=== PATIENT | female | born 1945 | race Caucasian/White ===

== ENCOUNTER → 2016-08-23 | Outpatient (CLI) | payer OTHER ==
--- NOTE | 2016-08-23 13:14 | MA ---
Screening Digital Mammogram With iCAD Analysis Clinical Indications: Routine screening. Her paternal grandmother was diagnosed with breast cancer in her 70s. Technique: Standard cephalocaudal projections are obtained. Digital breast tomosynthesis was performe d in the MLO projection with reconstruction at 1.0 mm slice thickness and composite MLO views reconst ructed. This examination is processed by the iCAD computer aided detection system. Comparison: August 2015, July 2014, July 2013, July 2012, July 2011, July 2010, Thomas wilson2009, May 2008. Breast density: Type B; Scattered fibroglandular densities. Findings: CAD was reviewed. No masses, suspicious calcifications or secondary signs of malignancy are seen. There has been no significant change in the appearance of either breast. Impression: Negative mammogram. BI-RADS 1. Recommendation: Routine mammographic screening in one year. [facility] will send a result letter to the patient. Negative mammography should not preclude additional workup of a clinically suspicious finding. The patient's information is entered into a reminder system with a target due date for her next mammo gram.
== END ==
LOC: FIMAGING 09:56
DX: Z12.31 Encounter for screening mammogram for malignant neoplasm of breast (principal); Z80.3 Family history of malignant neoplasm of breast

== ENCOUNTER → 2016-11-18 | Outpatient (CLI) | payer OTHER | LOC: BMCIMAGING 08:31 | PROVIDERS: ATTEND Physician Assistant | DX: Z47.89 Encounter for other orthopedic aftercare (principal); Z96.651 Presence of right artificial knee joint ==

== ENCOUNTER → 2016-11-23 | Outpatient (CLI) | payer OTHER | LOC: BMCIMAGING 13:27 | PROVIDERS: ATTEND Physician Assistant | DX: M79.9 Soft tissue disorder, unspecified (principal); M25.561 Pain in right knee ==

== ENCOUNTER → 2017-02-24 | Outpatient (CLI) | payer OTHER | LOC: BMCIMAGING 09:49 | PROVIDERS: ATTEND Orthopaedic Surgery | DX: S42.252A Displaced fracture of greater tuberosity of left humerus, initial encounter for closed fracture (principal) ==

== ENCOUNTER 2017-03-01 05:40 | Day surgery (SDC) | payer OTHER ==
[2017-03-01] MEDS ORDERED: ceFAZolin 2 GM/DEXTROSE 100 ML IV ONE (05:59)
[2017-03-01] MEDS ORDERED: LIDOCAINE 1% 2 ML INJ ID PRN (06:27)
[2017-03-01] MEDS ORDERED: LR 1,000 ML IV ONE (06:27)
--- NOTE | 2017-03-01 06:47 | PDHPUP ---
History & Physical Update H&P update statement: This history and physical update is based on an assessment of the patient which was completed after admission or registration (within 24 hours), but prior to the surgery/procedure.
[2017-03-01] MEDS ORDERED: oxyCODONE IR 5 MG TAB PO PRN (06:49)
[2017-03-01] MEDS ORDERED: MIDAZOLAM 2 MG/2 ML VIAL IVP ONE (06:56)
--- NOTE | 2017-03-01 06:56 | PDANEPAE ---
ANE History of Present Illness L greater tuberosity ORIF ANE Past Medical History - Cardiovascular History Hx Hypertension: Yes Hx Arrhythmias: No Hx Chest Pain: No Hx Coronary Artery / Peripheral Vascular Disease: No Hx CHF / Valvular Disease: No Hx Palpitations: No Cardiovascular History Comment: PCP MONITORS BP MEDS - Pulmonary History Hx COPD: No Hx Asthma/Reactive Airway Disease: No Hx Recent Upper Respiratory Infection: No Hx Oxygen in Use at Home: No Hx Sleep Apnea: Yes Sleep Apnea Screening Result - Last Documented: Positive Pulmonary History Comment: DENICE POSITIVE USES CPAP AT [facility]- INSTRUCTED PT TO BRING TO HOSPITAL - Neurologic History Hx Cerebrovascular Accident: No Hx Seizures: No Hx Dementia: No - Endocrine History Hx Diabetes: Yes Endocrine History Comment: TYPE 2 - Renal History Hx Renal Disorders: No - Liver History Hx Hepatic Disorders: No - Neurological & Psychiatric Hx Hx Neurological and Psychiatric Disorders: No - Cancer History Hx Cancer: No Cancer History Comment: parents- cancer. mother-pancreatic,liver. father-lung ca. - Congenital Disorder History Hx Congenital Disorders: No - GI History Hx Gastrointestinal Disorders: No - Other Health History Other Health History: WEARS GLASSES. WEARS BILATERAL HEARING AIDES. RIGHT ARM BRUISED AND HAS GOOSE-EGG SIZE HEMATOMA FROM FALL - Chronic Pain History Chronic Pain: No - Surgical History Prior Surgeries: MASS REMOVED FROM KNEE BY DR BLACK 12/2016. LEFT PARTIAL KNEE WITH BANUELOS 09/21/13. l knee scope 2008. tubal ligation ANE Review of Systems Review of systems is: negative - Exercise capacity Exercise capacity: >=4 METS METS (RN): 4 METS ANE Patient History - Allergies Allergies/Adverse Reactions: tetracycline [Tetracycline] Allergy (Intermediate, Verified 02/28/17 16:23) Rash - Home Medications Home medications: home medication list seen and reviewed Home Medications: RX: Calcium Carbonate/Vitamin D3 [Calcium 600-Vit D3 200 Tablet] 09/03/13 [ Last Taken 02/23/17] RX: Fish Oil/Dha/Epa [Fish Oil 1,200 mg Fish Oil] 09/03/13 [Last Taken 02/23/17 ] RX: Multivitamins [Multivitamin (*)] 09/03/13 [Last Taken 02/23/17] RX: Valsartan/Hydrochlorothiazide [Diovan Hct 160-12.5 mg Tab] 09/03/13 [Last Taken 02/28/17] RX: metFORMIN HCL [Glucophage 500 mg (*)] 09/03/13 [Last Taken 02/28/17 09:00] Atorvastatin Calcium 02/28/17 [Last Taken 02/28/17] IBUPROFEN 02/28/17 [Last Taken 02/23/17] Jardiance 02/28/17 [Last Taken 02/28/17 09:00] MAGNESIUM 02/28/17 [Last Taken 02/27/17] Vitamin D3 02/28/17 [Last Taken 02/23/17] - NPO status NPO Status: no food or drink >8 hours NPO Since - Liquids (Date): 02/28/17 NPO Since - Liquids (Time): 22:00 NPO Since - Solids (Date): 02/28/17 NPO Since - Solids (Time): 19:30 - Anes Hx Anes Hx: no prior problems - Smoking Hx Smoking Status: Former smoker - Family Anes Hx Family Anes Hx: none Family Hx Anesthesia Complications: none ANE Labs/Vital Signs - Labs Result Diagrams: 03/01/17 06:40 - Vital Signs Blood Pressure: 147/66 Heart Rate: 67 Respiratory Rate: 16 O2 Sat (%): 94 Height: 160.02 cm Weight: 79.379 kg ANE Physical Exam - Airway Neck exam: FROM Mallampati Score: Class 2 Mouth exam: normal dental/mouth exam - Pulmonary Pulmonary: no respiratory distress - Cardiovascular Cardiovascular: regular rate and rhythym - ASA Status ASA Status: II ANE Anesthesia Plan Anesthesia Plan: GA w LMA Regional Anesthesia: interscalene BP NB, POPC/PSR
[2017-03-01 07:01] LABS: ANION GAP 15 mEq/L (8-16); CALCIUM 9.4 mg/dL (8.5-10.4); CARBON DIOXIDE 22 mEq/l (22-31); CHLORIDE 103 mEq/L (97-110); CREATININE 0.6 mg/dL (0.6-1.0); GLOMERULAR FILTRATION RATE > 60; GLUCOSE 141 mg/dL (70-100); POTASSIUM 4.3 mEq/L (3.5-5.2); SODIUM 140 mEq/L (134-144)
[2017-03-01] MEDS ORDERED: BUPIVACAINE/EPI 0.5% 30 ML SDV ONE (07:05)
[2017-03-01] MEDS ORDERED: ROPIVACAINE HCL 150 MG/30 ML INJ ONE (07:06)
[2017-03-01] MEDS ORDERED: ONDANSETRON 4 MG/2 ML VIAL ONE (07:07)
[2017-03-01] MEDS ORDERED: fentaNYL 100 MCG/2 ML INJ ONE (07:07)
[2017-03-01] MEDS ORDERED: DEXAMETHASONE 4 MG/ML VIAL ONE (07:07)
[2017-03-01] MEDS ORDERED: LIDOCAINE 2% 100 MG/5 ML SYR ONE (07:07)
[2017-03-01] MEDS ORDERED: PROPOFOL 200 MG/20 ML VIAL ONE (07:11)
[2017-03-01] MEDS ORDERED: MEPERIDINE 25 MG/ML SYR IVP PRN (08:59)
[2017-03-01] MEDS ORDERED: HYDROCODONE/APAP 5/325 TAB PO PRN (08:59)
[2017-03-01] MEDS ORDERED: PROMETHAZINE HCL 25 MG/ML INJ IVP PRN (08:59)
[2017-03-01] MEDS ORDERED: DEXAMETHASONE 4 MG/ML VIAL IVP PRN (08:59)
[2017-03-01] MEDS ORDERED: HYDROmorphONE/DILAUDID 1 MG/ML SYR IVP PRN (08:59)
[2017-03-01] MEDS ORDERED: ONDANSETRON 4 MG/2 ML VIAL IVP PRN (08:59)
[2017-03-01] MEDS ORDERED: OXYCODONE/APAP 5/325 TAB PO PRN (08:59)
[2017-03-01] MEDS ORDERED: NALOXONE HCL 0.4 MG/ML INJ IVP PRN (08:59)
[2017-03-01] MEDS ORDERED: fentaNYL 100 MCG/2 ML INJ IVP PRN (08:59)
[2017-03-01] MEDS ORDERED: ACETAMINOPHEN 500 MG TAB PO PRN (08:59)
--- NOTE | 2017-03-01 09:01 | POSTANESTH ---
Post Anesthetic Evaluation Cardiovascular Status: Normal, Stable, Similar to Pre-Op Cond Respiratory Status: Similar to Pre-op Cond. Level of Consciousness/Mental Status: Can Participate in Eval, Mildly Sleepy, Arousable Pain Control: Adequate, Prn Tx Ordered Nausea/Vomiting Control: Adequate, Prn Tx Ordered Complications Possibly Related to Anesthesia: None Noted
[2017-03-01 09:42] VITALS: TEMP 98.2
[2017-03-01 10:04] VITALS: O2SAT 92
[2017-03-01 10:15] VITALS: BP 131/88; PULSE 68; RESP 17
--- NOTE | 2017-03-03 08:09 | GOP ---
[f rep st] OPERATIVE REPORT DATE OF OPERATION: 03/01/2017 SURGEON: Carter Marie MD FLATWORK TIER: Caleb Benson, DOUBLER OPERATOR, [facility]. assistant professor of psychology was a medical necessity for the entirety of the case. PREOPERATIVE DIAGNOSIS: Left greater tuberosity fracture, displaced. POSTOPERATIVE DIAGNOSIS: Left greater tuberosity fracture, displaced. PROCEDURE PERFORMED: Open reduction and internal fixation of left greater tuberosity fracture. FINDINGS: SPECIMENS: None. INDICATIONS: The patient is a 71-year-old woman who sustained a mechanical fall with a displaced le ft greater tuberosity fracture. She did have a concomitant shoulder dislocation, which was reduced. X-rays demonstrated displaced greater tuberosity fracture with proximal and posterior migration. I have recommended surgical stabilization. I have outlined the surgical procedure, risks, benefits, and alternatives. She wished to proceed. Written consent was signed and placed in the patient's c mckeon. DESCRIPTION OF PROCEDURE: The patient was identified in the preanesthesia area. The left shoulder was clearly demarcated as the operative site with indelible marker. She was given 2 g of Ancef intr avenously en route to the operative suite. In the OR, general endotracheal anesthesia was administe red. Attention was turned to the left shoulder which was sterilely prepped and draped in the usual fashion. The patient was turned to the right lateral decubitus position. All bony prominences were well padded. The shoulder was then sterilely prepped and draped in the usual fashion. Appropriate time-out procedure was carried out. A linear incision was made over the anterolateral aspect of th e acromion and carried sharply through the skin and subcutaneous tissue, directly to bone. The delt oid was elevated off the lateral edge of the acromion only and a self-retaining retractor was placed . The arm was rotated. The fracture site and disruption of the rotator cuff was easily visualized. This was opened. The underlying greater tuberosity fragment was fragmented; therefore, sutures we re placed across the rotator cuff with a running locking suture of #2 FiberWire. A total of 4 sutur e strands were placed, spread out over the rotator cuff insertion. This was then used to drape over the bony fragment into a reduced position, and a single Bio-SwiveLock anchor with the metal tip was then placed into the shaft across the anterior inferior aspect. The sutures trapped the greater tu berosity fragment into an anatomic position. A linear split in the rotator cuff was repaired with a #1 Ethibond. The wound was then copiously irrigated. A subacromial decompression was performed wi th a half-inch curved osteotome, and the deltoid repaired through drill holes to the distal acromion with #1 Ethibond. Subcutaneous tissue was closed using 0 Vicryl, 2-0 Monocryl, and dez. Steri le dressing was applied. The wound was injected with 15 cc of 0.5% Marcaine with epinephrine, in ad dition to the interscalene block placed at the onset of the case. Sterile dressing was applied, fol lowed by shoulder immobilizer. The patient was awakened, extubated, and taken to recovery room in g ood, stable condition. TOTAL TOURNIQUET TIME: None. COMPLICATIONS: None. IMPLANTS: As above. DISPOSITION: To the recovery room, then home. /[id number]/MODL
== END 2017-03-01 10:35 | disposition home or self-care (01) ==
LOC: FSGY 05:40
PROVIDERS: ATTEND Orthopaedic Surgery
PROC: 0PSD04Z Reposition Left Humeral Head with Internal Fixation Device, Open Approach (ICD-10-PCS; principal; 2017-03-01 07:15)
DX: S42.252A Displaced fracture of greater tuberosity of left humerus, initial encounter for closed fracture (principal); W10.1XXA Fall (on)(from) sidewalk curb, initial encounter; S43.005D Unspecified dislocation of left shoulder joint, subsequent encounter; G47.33 Obstructive sleep apnea (adult) (pediatric); Z87.891 Personal history of nicotine dependence
CPT/HCPCS: C1713; J0690; J1100; J2001; J2250; J2405; J2704; J2795; J3010

== ENCOUNTER → 2017-07-19 | Outpatient (CLI) | payer OTHER | LOC: BMCIMAGING 13:17 | PROVIDERS: ATTEND Orthopaedic Surgery | DX: S42.302D Unspecified fracture of shaft of humerus, left arm, subsequent encounter for fracture with routine healing (principal); M89.522 Osteolysis, left upper arm ==

== ENCOUNTER → 2017-08-26 | Outpatient (CLI) | payer OTHER | LOC: FIMAGING 12:10 | PROVIDERS: ATTEND Internal Medicine | DX: Z12.31 Encounter for screening mammogram for malignant neoplasm of breast (principal) ==

== ENCOUNTER → 2017-09-02 | Outpatient (CLI) | payer OTHER | LOC: BMCIMAGING 13:49 | PROVIDERS: ATTEND Internal Medicine | DX: Z13.820 Encounter for screening for osteoporosis (principal); M85.89 Other specified disorders of bone density and structure, multiple sites ==

== ENCOUNTER → 2017-10-18 | Outpatient (CLI) | payer OTHER | LOC: BMCIMAGING 09:15 | PROVIDERS: ATTEND Orthopaedic Surgery | DX: S42.252D Displaced fracture of greater tuberosity of left humerus, subsequent encounter for fracture with routine healing (principal) ==

== ENCOUNTER → 2018-08-29 | Outpatient (CLI) | payer OTHER | LOC: FIMAGING 12:02 | PROVIDERS: ATTEND Internal Medicine | DX: Z12.31 Encounter for screening mammogram for malignant neoplasm of breast (principal); Z80.3 Family history of malignant neoplasm of breast ==